=== PATIENT | male | born 1955 | race Hispanic/Latino ===

== ENCOUNTER 2017-12-09 11:26 | Emergency (ER) | payer OTHER ==
--- NOTE | 2017-12-09 13:14 | CT ---
CT FACE WITHOUT CONTRAST: History: Injury. Comparison: None. FINDINGS: Nondisplaced bilateral nasal bone fractures extending to the nasal bridge. There appears to be a frac ture of the osseous nasal septum, nondisplaced. There is high density material in the maxillary sinuses bilaterally suggesting hemorrhage. There is a lso hemorrhage within the nasal cavity as well as of the ethmoids. The anterior maxillary marcelino, posterior maxillary marcelino, zygoma of zygomatic arches, lateral orbital marcelino as well as the medial orbital marcelino are intact. The globes are intact. No retrobulbar hematoma. Soft tissue contusion of the nose and the forehead. Small osteoma of the right frontal sinus. There is layering fluid within the left frontal sinus. Pterygoid plates are intact. Upper cervical spine appears unremarkable. The mandibles are intact. Temporomandibular joints are of normal alignment with mild degeneration of the right worse than left temporomandibular joint. IMPRESSION: 1. Bilateral nasal bones fractures as well as a fracture of the osseous nasal septum which is minimal ly displaced. 2. Extensive high density material in the maxillary sinuses as well as the ethmoids suggesting hemorr emily. 3. No orbital blow out fractures. POS: [facility]
--- NOTE | 2017-12-09 13:25 | CT ---
CT BRAIN WITHOUT CONTRAST: Date: 12/09/17 HISTORY: Injury. Cooler fell on nose with bloody nose. COMPARISON: None. FINDINGS: No acute hemorrhage or infarct. No midline shift or mass effect. Ventricular size and extraaxial CSF spaces are normal. There is dense material within the maxillary sinuses bilaterally. Likely bilateral nasal bone fractures. IMPRESSION: 1. No acute post-traumatic intracranial sequelae. 2. High density material within the maxillary sinuses may be hemorrhage. 3. Likely bilateral nasal bone fractures. Please see dedicated CT face report. 4. Small volume fluid in right maxillary sinus. POS: [facility]
== END 2017-12-09 13:25 | disposition home or self-care (01) ==
LOC: SCSER 11:26
DX: S02.2XXA Fracture of nasal bones, initial encounter for closed fracture (principal); I10 Essential (primary) hypertension; E66.9 Obesity, unspecified; J45.909 Unspecified asthma, uncomplicated; Z79.899 Other long term (current) drug therapy; Z79.01 Long term (current) use of anticoagulants; W20.8XXA Other cause of strike by thrown, projected or falling object, initial encounter
CPT/HCPCS: 70450; 70486

== ENCOUNTER 2018-10-06 06:49 | Day surgery (SDC) | payer MEDICARE ==
[2018-10-06 07:46] VITALS: BMI 48.2
[2018-10-06] MEDS ORDERED: Iopamidol-M 300 61% 15 ML VIAL ONE (09:35)
--- NOTE | 2018-10-06 10:22 | RAD ---
CERVICAL AND THORACIC AND LUMBAR SPINE MYELOGRAM: HISTORY: Neck pain. Low back pain. EXPOSURE: 1.2 minutes 204.96 mGy per m2. FINDINGS: LUMBAR SPINE: Two views of the lumbar spine show five lumbar type vertebral bodies. Mild loss of di sk space height at L4-L5 and L5-S1 with associated osteophyte formation. Vertebral body height is ma intained. No fracture. THORACIC SPINE: Two views of the thoracic spine show a laminectomy defect in the lower thoracic spin e, at the T11 and T12 levels. There appears to be mild loss of vertebral body height at approximatel y the T10 level, which may represent a remote compression fracture. CERVICAL SPINE: Three views of the cervical spine show multilevel facet hypertrophy. No malalignmen t or fracture. TECHNIQUE: Consent obtained to perform a lumbar puncture for a complete myelogram. The L3-L4 level was deemed a ppropriate. The skin was prepped and draped in a sterile fashion, and 1% Lidocaine buffered with sod ium bicarbonate was used for local anesthesia. Under fluoroscopy guidance, a 22 gauge spinal needle was advanced into the CSF space. The inner stylet was removed. There was prompt flow of clear CSF i nto the hub of the needle. Via a short tubing catheter, a total of 10 mL of Isovue-M 300 contrast wa s administered intrathecally. No immediate or post procedure complications. IMPRESSION: Successful lumbar puncture for cervical, thoracic, and lumbar myelogram. A total of 10 mL of Isovue- M 300 contrast was administered intrathecally. No immediate or post procedure complications. POS: [facility]
--- NOTE | 2018-10-06 11:30 | CT ---
CT LUMBAR SPINE POST MYELOGRAM: HISTORY: Back pain. COMPARISON: None. FINDINGS: Five lumbar type vertebral bodies. Lumbar spine vertebral body height is maintained. There is no fr acture. Vacuum disk phenomenon at L2-L3, L3-L4, L4-L5, and L5-S1. Vacuum joint phenomenon in both S I joints. The visualized solid organs and alimentary canal are unremarkable. No retroperitoneal mass, lymphade nopathy, or hematoma. There is atherosclerosis with mild prominence of the infrarenal abdominal aort a, measuring 2.6 x 2.7 cm. Atrophy of the inferior left psoas muscle. Limited evaluation of the pelvis due to beam attenuation artifact in the left hip. Limited evaluation of the contents of the central spinal canal and neural foramina. The conus medullaris terminates at the L1 level. T11-T12: Posterior decompression. Mild central canal stenosis. Moderate bilateral foraminal narrow ing. T12-L1: No high-grade central canal stenosis. The neural foramina are patent. L1-L2: Generalized disk bulge. Mild central canal stenosis. Mild bilateral foraminal narrowing. L2-L3: Vacuum disk phenomenon. Generalized disk bulge, minimal ligamentum flavum thickening, and fa cet hypertrophy result in mild central canal stenosis. Mild to moderate right and left foraminal bob rowing. L3-L4: Vacuum disk phenomenon. No significant central canal stenosis. Mild to moderate bilateral f oraminal narrowing. L4-L5: Vacuum disk phenomenon. There appears to be a generalized disk bulge with small osteophytes extending into the left subarticular zone. There is presumed mass effect upon the traversing left L5 nerve root. The right subarticular zone is unremarkable. Overall, there is mild central canal sten osis. Moderate to severe bilateral foraminal narrowing. L5-S1: Vacuum disk phenomenon. There appears to be a generalized disk bulge with disk material in t he left subarticular zone. Disk material abuts but does not obscure the traversing left S1 nerve shalini t. There appears to be moderate to severe right and mild to moderate left foraminal narrowing. IMPRESSION: 1. 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 2. Degenerative changes in the lumbar spine, as above. POS: [facility]
--- NOTE | 2018-10-06 11:53 | CT ---
POST MYELOGRAM CERVICAL SPINE CT: COMPARISON: 11/16/2014 TECHNIQUE: A post myelogram cervical spine CT is performed in the axial plane. Reformatted images are submitted for interpretation. FINDINGS: Soft tissue neck structures are unremarkable. Hypertrophy of the palatine tonsils, similar to the pr evious examination. Limited evaluation of the oral cavity due to dental amalgam artifact. Symmetric attenuation of the parotid and submandibular glands. Symmetric attenuation of the sternocleidomasto id muscles. No evidence of lymphadenopathy by size criteria. Unremarkable thyroid gland. The upper mediastinum and lung apices are unremarkable. Cervical spine vertebral body height is maintained. There is no fracture. No craniocervical dissoci ation. Appropriate alignment of the lateral masses of C1 and C2, as well as the facets. Intact odon toid process. C2-C3: No significant central canal stenosis. The neural foramina are patent. C3-C4: Broad-based disk osteophyte complex. There is progression of central canal stenosis. Curren tly, there is moderate central canal stenosis. There is moderate to severe right and moderate left f oraminal narrowing. C4-C5: There is a broad-based disk osteophyte complex with a left paracentral component. Mild centr al canal stenosis. The right neural foramen is patent. Mild left foraminal narrowing. C5-C6: Broad-based disk osteophyte complex abuts the thecal sac. Mild central canal stenosis. Mode rate right and mild left foraminal narrowing. C6-C7: No significant disk osteophyte complex. No significant central canal stenosis. Mild right a nd mild to moderate left neural foraminal narrowing. C7-T1: No high-grade central canal stenosis or high-grade foraminal narrowing. IMPRESSION: Degenerative changes of the cervical spine, as detailed above. When compared to the previous examina tion, there is progression of central canal stenosis at C3-C4. POS: [facility]
--- NOTE | 2018-10-07 07:28 | CT ---
CT THORACIC SPINE MYELOGRAM: CT THORACIC SPINE WITH CONTRAST: CLINICAL HISTORY: Back pain. Neck pain. History of prior surgery. FINDINGS: Multilevel endplate degenerative change with some marginal osteophyte formation is seen throughout th e thoracic spine. There is a focal kyphosis centered at the low thoracic spine, where there is resec tion of posterior elements involving the T11 and T12 segments. At the T1-T2, T2-T3, and T3-T4 levels, there is no significant compromise of the central canal or bassem ral foramina. The T4-T5 level reveals a left asymmetric disk osteophyte with slight effacement of ventral thecal sa c contents and slight left ventral hemicord flattening. No high-grade foraminal stenosis. T5-T6 and T6-T7 reveal no significant central canal or foraminal stenosis. At T7-T8, there is a left asymmetric disk osteophyte that results in mild thecal sac effacement witho ut high-grade central canal or neural foraminal stenosis. At T8-T9, there is trace spondylolisthesis with mild disk osteophyte without high-grade central canal or neural foraminal stenosis. At T9-T10, there is ligamentous calcification along the left ligamentum flavum, which effaces the pos terior left thecal sac with slight effacement of the posterior left cord, although there is no high-g rade central canal or foraminal stenosis. At T10-T11, broad-based osteophyte results in mild ventral cord flattening and mild central canal rodrick nosis. Mild osseous narrowing of each neural foramen. At T11-T12, there is a broad-based disk osteophyte, which effaces the ventral aspect of the thecal sa c. There is bilateral facet osteoarthritis with transverse diameter narrowing of the thecal sac and mild cord effacement. Mild right and moderate left neural foraminal narrowing present. At T12-L1, there is slight ventral thecal sac effacement due to broad-based osteophyte. No high-grad e foraminal stenosis. IMPRESSION: Multilevel mild degenerative change throughout the thoracic spine, as detailed above. POS: [facility]
== END 2018-10-06 10:05 | disposition home or self-care (01) ==
LOC: RAD 06:49 → EDSTATUS 08:00 → RAD 10:05
PROVIDERS: ATTEND Surgery
PROC: B01B1ZZ Fluoroscopy of Spinal Cord using Low Osmolar Contrast (ICD-10-PCS; principal; 2018-10-06)
DX: M48.02 Spinal stenosis, cervical region (principal); M40.294 Other kyphosis, thoracic region; M48.061 Spinal stenosis, lumbar region without neurogenic claudication; M25.78 Osteophyte, vertebrae; M54.2 Cervicalgia; M54.6 Pain in thoracic spine; M54.5 Low back pain; Z88.2 Allergy status to sulfonamides; Z98.890 Other specified postprocedural states
CPT/HCPCS: 62305; 72126; 72129; 72132; Q9967

== ENCOUNTER 2019-07-06 09:34 | Emergency (ER) | payer MEDICARE ==
[2019-07-06] MEDS ORDERED: Ketorolac Tromethamine 30 MG/ML VIAL ONE (10:10)
== END 2019-07-06 10:28 | disposition home or self-care (01) ==
LOC: SCSER 09:34
DX: M62.830 Muscle spasm of back (principal); I10 Essential (primary) hypertension; E66.9 Obesity, unspecified; J45.909 Unspecified asthma, uncomplicated; Z79.01 Long term (current) use of anticoagulants
CPT/HCPCS: J1885

== ENCOUNTER 2020-12-14 12:58 | Outpatient (CLI) | payer MEDICARE | END 2020-12-14 12:59 | disposition home or self-care (01) | LOC: MRI 12:58 | PROVIDERS: ATTEND Orthopaedic Surgery Hand Surgery | DX: M92.212 Osteochondrosis (juvenile) of carpal lunate [Kienbock], left hand (principal); Z01.818 Encounter for other preprocedural examination; Z95.0 Presence of cardiac pacemaker; M25.432 Effusion, left wrist | CPT/HCPCS: 71045 ==

== ENCOUNTER 2020-12-26 14:35 | Outpatient (CLI) | payer MEDICARE ==
[2020-12-26 16:56] LABS: #Basophils 0.1 10x3/uL (0.0-0.2); #Eosinphils 0.3 10x3/uL (0.0-0.5); #Monocytes 0.7 10x3/uL (0.0-1.1); #Neutrophils 5.8 10x3/uL (1.5-8.4); %Basophils 0.7 % (0.0-2.0); %Eosinophils 2.8 % (0.0-6.0); %Lymphocytes 23.9 % (18.0-47.0); %Monocytes 7.3 % (0.0-10.0); %Neutrophils 64.3 % (40.0-75.0); Hemoglobin 14.3 g/dL (13.5-17.5); Mean Corpuscular HGB CONC 32.5 g/dL (32.0-36.0); Mean Corpuscular Hemoglobin 28.7 pg (27.0-33.0); Mean Corpuscular Volume 88.2 fl (81.2-95.1); Mean Platelet Volume 9.7 fl (7.4-10.4); Platelet Count 238 10x3/uL (150-450); RBC Distribution Width 15.5 % (11.5-14.5); Red Blood Cell (RBC) Count 4.99 10x6/uL (4.32-5.72)
[2020-12-26 17:03] LABS: Anion Gap 17 mmol/L (10-20); BUN (Urea Nitrogen) 11 mg/dL (8.4-25.7); Calc. Creatinine Clearance 0 mL/min (70-130); Carbon Dioxide 26 mmol/L (23-31); Chloride 101 mmol/L (98-107); Glucose 80 mg/dL (80-115); Potassium 4.5 mmol/L (3.5-5.1); Sodium 139 mmol/L (136-145)
[2020-12-27 01:16] LABS: SARS-CoV-2 PCR by NAA Not Detected (NotDetected)
== END 2020-12-26 14:36 | disposition home or self-care (01) ==
LOC: LABBT 14:35
PROVIDERS: ATTEND Orthopaedic Surgery Hand Surgery
DX: Z01.818 Encounter for other preprocedural examination (principal); S63.592A Other specified sprain of left wrist, initial encounter; Z20.822 Contact with and (suspected) exposure to COVID-19
CPT/HCPCS: 80048; 85025; U0003; U0005; 87635; 93005; 93010

== ENCOUNTER 2020-12-29 08:22 | Inpatient (IN) | payer MEDICARE ==
[2020-12-29] MEDS ORDERED: Midazolam HCl 2 mg/2 ml Vial ONE (09:50)
[2020-12-29] MEDS ORDERED: Fentanyl 100 MCG/2 ML VIAL ONE ×5 (09:50→18:39)
[2020-12-29] MEDS ORDERED: Bacitracin Zinc Ointment 30 gm TUBE ONE (12:02)
[2020-12-29] MEDS ORDERED: Bupivacaine PF 0.5% 30 ML VIAL ONE (12:02)
[2020-12-29] MEDS ORDERED: EPINEPHrine 1 MG/ML AMP ONE (12:02)
[2020-12-29] MEDS ORDERED: Bupivacaine HCl 0.5%/Epinephrine 1:200,000/PF 30 ml Vial ONE (12:57)
[2020-12-29] MEDS ORDERED: Ondansetron PF 4 MG/2 ML Vial ONE (12:57)
[2020-12-29] MEDS ORDERED: Succinylcholine 200 MG/10 ml SYRINGE FS ONE (12:57)
[2020-12-29] MEDS ORDERED: PROPOFOL 200 MG/20 ML VIAL ONE (12:57)
[2020-12-29] MEDS ORDERED: Rocuronium Bromide 10 MG/ML (10ML VIAL) ONE (12:57)
[2020-12-29] MEDS ORDERED: Glycopyrrolate 0.2 MG/ML 5 ML SYRINGE ONE (12:57)
[2020-12-29] MEDS ORDERED: Lidocaine 1% PF 5 ML VIAL ONE (12:57)
[2020-12-29] MEDS ORDERED: Dexamethasone 20 MG/5 ML VIAL ONE (12:57)
[2020-12-29] MEDS ORDERED: Sodium Chloride 0.9% 10 ML ONE (13:24)
[2020-12-29 13:29] LABS: Bacteria/HPF None Seen HPF (None Seen); Bilirubin Negative (Negative); Blood, Urine Negative (Negative); Clarity Clear (Clear); Glucose, Urine (Dipstick) Normal (Negative); Ketone, Urine Negative (Negative); Leukocyte Negative Leu/uL (Negative); Nitrite Negative (Negative); Protein, Urine (Dipstick) 10 mg/dL (Neg-Trace); RBC/HPF 0-3 HPF (0-3); Specific Gravity, Urine 1.027 (1.002-1.036); Squamous Epithelial None Seen HPF (0-3); Urobilinogen Normal mg/dL (Less than 2); WBC/HPF 0-3 HPF (0-3)
[2020-12-29] MEDS ORDERED: Betamet Acet/Betamet Na Ph 30 MG/5 ML VIAL ONE (15:06)
[2020-12-29] MEDS ORDERED: Ketorolac Tromethamine 30 MG/ML VIAL ONE (16:27)
[2020-12-29] MEDS ORDERED: Morphine 4 MG/ML VIAL SLOW IVP PRN (17:02)
[2020-12-29] MEDS ORDERED: Ondansetron PF 4 MG/2 ML Vial SLOW IVP PRN (17:02)
[2020-12-29] MEDS ORDERED: Acetaminophen 325 MG TAB PO PRN (17:02)
[2020-12-29] MEDS ORDERED: Ketorolac Tromethamine 30 MG/ML VIAL IVP PRN (17:09)
[2020-12-29] MEDS ORDERED: Meperidine HCl/PF 25 MG/ML VIAL IM PRN (17:09)
[2020-12-29] MEDS ORDERED: Communication Order-Pharmacy FS SCH (17:15)
[2020-12-29] MEDS ORDERED: TETANUS AND DIPHTHERIA TOX/PF 0.5 ML DISP.SYRIN IM SCH (17:15)
[2020-12-29 20:11] VITALS: BMI 48.7
[2020-12-29] MEDS: HYDROcodone/Acetaminophen 10/325 mg Tablet PO PRN (20:17)
[2020-12-29] MEDS: Aspirin 81 mg Enteric Coated Tablet PO SCH (20:18)
[2020-12-29] MEDS: VANCOMYCIN 2 GRAM/400 ML BAG 2 GM in Premix Bag 1 BAG IVPB SCH (20:18)
[2020-12-29] MEDS: Sodium Chloride 0.9% 1,000 ML IV SCH (20:18)
[2020-12-29] MEDS ORDERED: TETANUS, DIPHTHERIA TOX,ADULT (TDVAX) 0.5 ML VIAL IM ONE (21:00)
[2020-12-29] MEDS: Fentanyl 100 MCG/2 ML VIAL SLOW IVP PRN (23:43)
[2020-12-30] MEDS: HYDROcodone/Acetaminophen 10/325 mg Tablet PO PRN ×3 (00:13→11:31)
[2020-12-30] MEDS: Fentanyl 100 MCG/2 ML VIAL SLOW IVP PRN (05:06)
[2020-12-30] MEDS: Sodium Chloride 0.9% 1,000 ML IV SCH (05:25)
[2020-12-30 07:56] VITALS: TEMP 98.1
[2020-12-30] MEDS: VANCOMYCIN 2 GRAM/400 ML BAG 2 GM in Premix Bag 1 BAG IVPB SCH (08:53)
[2020-12-30] MEDS: Aspirin 81 mg Enteric Coated Tablet PO SCH (08:53)
[2020-12-30 13:20] VITALS: BP 146/56
== END 2020-12-30 12:50 | disposition home or self-care (01) | DRG 501 ==
LOC: SDC 08:22 → SURG A 17:02
PROVIDERS: ADMIT Orthopaedic Surgery Hand Surgery; ATTEND Orthopaedic Surgery Hand Surgery
PROC: 0RBN4ZZ Excision of Right Wrist Joint, Percutaneous Endoscopic Approach (ICD-10-PCS; principal; 2020-12-29)
PROC: 0LB50ZZ Excision of Right Lower Arm and Wrist Tendon, Open Approach (ICD-10-PCS; 2020-12-29)
DX: M65.841 Other synovitis and tenosynovitis, right hand (principal); Z68.42 Body mass index [BMI] 45.0-49.9, adult; Z20.822 Contact with and (suspected) exposure to COVID-19; S63.591A Other specified sprain of right wrist, initial encounter; M25.839 Other specified joint disorders, unspecified wrist; M65.041 Abscess of tendon sheath, right hand; J30.2 Other seasonal allergic rhinitis; I10 Essential (primary) hypertension; E78.5 Hyperlipidemia, unspecified; E66.01 Morbid (severe) obesity due to excess calories; F41.9 Anxiety disorder, unspecified; F32.9 Major depressive disorder, single episode, unspecified; N40.0 Benign prostatic hyperplasia without lower urinary tract symptoms; M92 Other juvenile osteochondrosis; Z96.652 Presence of left artificial knee joint; E78.00 Pure hypercholesterolemia, unspecified; S63.52 Sprain of radiocarpal joint; M65.4 Radial styloid tenosynovitis [de Quervain]; M19.90 Unspecified osteoarthritis, unspecified site; I25.2 Old myocardial infarction; Z98.890 Other specified postprocedural states; Z95.0 Presence of cardiac pacemaker; Z79.899 Other long term (current) drug therapy; Z87.891 Personal history of nicotine dependence
CPT/HCPCS: 76000; 80048; 81001; 85025; 87635; 93005; 93010; C1713; J0171; J0690; J0702; J1100; J1885; J2250; J2270; J2405; J2704; J3010; J3370; J3490; S0020; U0003; U0005

== ENCOUNTER 2021-05-02 11:58 | Outpatient (CLI) | payer MEDICARE | END 2021-05-02 11:59 | disposition home or self-care (01) | LOC: MRI 11:58 | PROVIDERS: ATTEND Orthopaedic Surgery Hand Surgery | DX: M25.832 Other specified joint disorders, left wrist (principal); M25.732 Osteophyte, left wrist; Z98.890 Other specified postprocedural states ==

== ENCOUNTER 2021-06-12 13:18 | Outpatient (CLI) | payer MEDICARE ==
[2021-06-12 15:26] LABS: #Basophils 0.1 10x3/uL (0.0-0.2); #Eosinphils 0.2 10x3/uL (0.0-0.5); #Monocytes 0.7 10x3/uL (0.0-1.1); #Neutrophils 6.2 10x3/uL (1.5-8.4); %Basophils 0.5 % (0.0-2.0); %Eosinophils 2.4 % (0.0-6.0); %Lymphocytes 22.8 % (18.0-47.0); %Monocytes 7.1 % (0.0-10.0); %Neutrophils 66.1 % (40.0-75.0); Mean Corpuscular HGB CONC 31.6 g/dL (32.0-36.0); Mean Corpuscular Hemoglobin 28.9 pg (27.0-33.0); Mean Corpuscular Volume 91.5 fl (81.2-95.1); Mean Platelet Volume 9.6 fl (7.4-10.4); Platelet Count 248 10x3/uL (150-450); RBC Distribution Width 15.4 % (11.5-14.5); Red Blood Cell (RBC) Count 4.84 10x6/uL (4.32-5.72); White Blood Cell (WBC) Count 9.4 10x3/uL (3.5-10.5)
[2021-06-12 16:18] LABS: Bilirubin Neg (Negative); Blood, Urine Negative (Negative); Glucose, Urine (Dipstick) Normal (Negative); Ketone, Urine Negative (Negative); Leukocyte Negative (Negative); Nitrite Negative (Negative); Protein, Urine (Dipstick) Negative (Neg-Trace); Specific Gravity, Urine 1.015 (1.002-1.036); Urobilinogen Normal mg/dL (Less than 2)
[2021-06-12 16:19] LABS: Clarity Clear (Clear)
[2021-06-13 00:09] LABS: SARS-CoV-2 PCR by NAA Not Detected (NotDetected)
== END 2021-06-12 13:19 | disposition home or self-care (01) ==
LOC: LABBT 13:18
PROVIDERS: ATTEND Orthopaedic Surgery Hand Surgery
DX: Z01.818 Encounter for other preprocedural examination (principal); M19.032 Primary osteoarthritis, left wrist; Z20.822 Contact with and (suspected) exposure to COVID-19
CPT/HCPCS: 81003; 85025; 93005; U0003; U0005; 93010

== ENCOUNTER 2021-06-15 08:23 | Day surgery (SDC) | payer MEDICARE ==
[2021-06-13 14:45] VITALS: BMI 48.8
[2021-06-15] MEDS ORDERED: ceFAZolin 2 GM/DEX 5% 100 ML BAG ONE (08:53)
[2021-06-15] MEDS ORDERED: Fentanyl 100 MCG/2 ML VIAL ONE ×2 (10:57→11:35)
[2021-06-15] MEDS ORDERED: Midazolam HCl 2 mg/2 ml Vial ONE (10:57)
[2021-06-15] MEDS ORDERED: Bupivacaine PF 0.5% 30 ML VIAL ONE (11:43)
[2021-06-15] MEDS ORDERED: Bacitracin Zinc Ointment 30 gm TUBE ONE (11:43)
[2021-06-15] MEDS ORDERED: Phenylephrine 10 MG/ML VIAL ONE (11:51)
[2021-06-15] MEDS ORDERED: Rocuronium Bromide 10 MG/ML (10ML VIAL) ONE (11:57)
[2021-06-15] MEDS ORDERED: Lidocaine 1% PF 5 ML VIAL ONE (11:57)
[2021-06-15] MEDS ORDERED: ePHEDrine 50 MG/ML VIAL ONE (11:57)
[2021-06-15] MEDS ORDERED: Bupivacaine HCl 0.5%/Epinephrine 1:200,000/PF 30 ml Vial ONE (11:57)
[2021-06-15] MEDS ORDERED: PROPOFOL 200 MG/20 ML VIAL ONE (11:57)
[2021-06-15] MEDS ORDERED: Dexamethasone 20 MG/5 ML VIAL ONE (11:57)
[2021-06-15] MEDS ORDERED: Ondansetron PF 4 MG/2 ML Vial ONE (11:57)
[2021-06-15] MEDS ORDERED: EPINEPHrine 1 MG/ML AMP ONE (12:45)
[2021-06-15] MEDS ORDERED: Ketorolac Tromethamine 30 MG/ML VIAL ONE ×2 (16:42→16:46)
[2021-06-17 16:54] LABS: ANA Symphony (Qualitative) Negative (Negative); ANA Symphony (Quantitative) 0.1 Ratio (< 0.7 Negative); dsDNA IgG Antibody 0.5 IU/mL (<10 Negative)
[2021-06-17 18:15] LABS: EliA RAS New Method **** NEW METHOD ****; Rheumatoid Factor IgA Antibody 2.8 IU/mL (<14 Negative)
== END 2021-06-15 19:20 | disposition home or self-care (01) ==
LOC: SDC 08:23
PROVIDERS: ATTEND Orthopaedic Surgery Hand Surgery
PROC: 0RRP0JZ Replacement of Left Wrist Joint with Synthetic Substitute, Open Approach (ICD-10-PCS; principal; 2021-06-15)
PROC: 01B60ZZ Excision of Radial Nerve, Open Approach (ICD-10-PCS; 2021-06-15)
PROC: 3E0T3BZ Introduction of Anesthetic Agent into Peripheral Nerves and Plexi, Percutaneous Approach (ICD-10-PCS; 2021-06-15)
PROC: 0RBP4ZZ Excision of Left Wrist Joint, Percutaneous Endoscopic Approach (ICD-10-PCS; 2021-06-15)
DX: M19.032 Primary osteoarthritis, left wrist (principal); S63.512A Sprain of carpal joint of left wrist, initial encounter; M65.88 Other synovitis and tenosynovitis, other site; I11.9 Hypertensive heart disease without heart failure; G47.33 Obstructive sleep apnea (adult) (pediatric); I25.2 Old myocardial infarction; Z79.82 Long term (current) use of aspirin; Z79.899 Other long term (current) drug therapy; Z88.2 Allergy status to sulfonamides; Z95.0 Presence of cardiac pacemaker
CPT/HCPCS: 25446; 29844; 64415; 64772; 73120; 76000; 81374; 83520; 85652; 86038; 86225; C1713; 36415; J0171; J1100; J1885; J2250; J2370; J2405; J2704; J3010; J3490; S0020